=== PATIENT | male | born 1960 | race Caucasian/White ===

== ENCOUNTER 2017-07-07 23:57 | Inpatient (IN) | payer BC ==
--- NOTE | 2017-07-08 00:24 | EDM.PDOC ---
ED HPI GENERAL MEDICAL PROBLEM - General Chief Complaint: General Stated Complaint: ambulance Time Seen by Provider: 07/07/17 23:59 Source of Information: Reports: Patient, Family () History Limitations: Reports: Physical Impairment (Hard of hearing) - History of Present Illness INITIAL COMMENTS - FREE TEXT/NARRATIVE: The patient has a history of a kidney transplant over 18 years ago, and is on immunosuppressive medications. He states that his renal function is ordinarily normal. The patient states that he developed watery diarrhea and generalized weakness about 2 days ago. He developed some crampy abdominal discomfort this evening, and felt lightheaded, to the point that he could barely walk, around 22:00. He has had a cough productive of slight yellowish phlegm over the past 2 weeks, however, he has not had a fever. No nausea or emesis, although his appetite has been off. No recent chest pain or palpitations. No history of eating bad or spoiled food. No recent antibiotics. No recent travel. No similarly ill contacts. The patient took NyQuil tonight, and has taken 2 tablets of [id number] Advil twice a day for the past 3 days. The patient does not have a PCP. His Project Finance Analyst is Dr. Quintero. - Related Data Allergies Allergy/AdvReac Type Severity Reaction Status Date / Time No Known Allergies Allergy Verified 07/08/17 00:15 Home Meds: Home Meds Calcium Carbonate/Vitamin D3 [Calcium 600 + Vit D 200] 500 mg PO BEDTIME [History] Doxazosin Mesylate [Cardura] 8 mg PO DAILY 07/08/17 [History] Mycophenolate Mofetil [Cellcept] 250 mg PO BID 07/08/17 [History] Tacrolimus [Prograf] 1 mg PO BID 07/08/17 [History] Vit E/Zn/Lut/Lyco/Bilber/Hb261 [Lipotriad Vision Support Plus] 400 units PO BID 07/08/17 [History] prednisoLONE [Millipred] 5 mg PO BEDTIME 07/08/17 [History] Past Medical History HEENT History: Reports: Hard of Hearing Other HEENT History: wears FRANKLIN Genitourinary History: Reports: Other (See Below) (Congenital malformation of the urinary tract) Neurological History: Reports: Migraines - Past Surgical History GI Surgical History: Reports: Appendectomy Female Surgical History: Reports: Other (See Below) (Urostomy at 9 years old. 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 Constitutional: Reports: No Symptoms HEENT: Reports: No Symptoms Respiratory: Reports: No Symptoms Cardiovascular: Reports: No Symptoms Endocrine: Reports: No Symptoms GI/Abdominal: Reports: No Symptoms : Reports: No Symptoms Musculoskeletal: Reports: No Symptoms Skin: Reports: No Symptoms Neurological: Reports: No Symptoms Psychiatric: Reports: No Symptoms Hematologic/Lymphatic: Reports: No Symptoms Immunologic: Reports: No Symptoms ED EXAM, GENERAL - Physical Exam Exam: See Below Exam Limited By: No Limitations General Appearance: Alert, WD/WN, No Apparent Distress Eye Exam: Bilateral Eye: Normal Inspection Ears: Normal External Exam, Hearing Grossly Normal Nose: Normal Inspection, No Blood Throat/Mouth: Normal Inspection, Normal Lips, Normal Voice, No Airway Compromise Head: Atraumatic, Normocephalic Neck: Normal Inspection, Full Range of Motion Respiratory/Chest: No Respiratory Distress, Lungs Clear, Normal Breath Sounds, No Accessory Muscle Use Cardiovascular: Normal Peripheral Pulses, Regular Rate, Rhythm, No Edema, No Gallop, No JVD, No Murmur, No Rub Peripheral Pulses: 3+: Radial (L), Radial (R) GI/Abdominal: Normal Bowel Sounds, Soft, Non-Tender, No Organomegaly, No Distention, No Abnormal Bruit, No Mass, Other (Urostomy site in the right lower quadrant is clean, dry, intact) (Male) Exam: Deferred Rectal (Males) Exam: Deferred Back Exam: Normal Inspection, Full Range of Motion, NT Extremities: Normal Inspection, Normal Range of Motion, Non-Tender, No Pedal Edema, Normal Capillary Refill Neurological: Alert, Oriented, Normal Cognition, No Motor/Sensory Deficits Psychiatric: Normal Affect Skin Exam: Warm, Dry, Intact, Normal Color, No Rash Course - Vital Signs Last Recorded V/S: Last Vital Signs Temp 36.4 C 07/08/17 00:01 Pulse 90 07/08/17 00:01 Resp 18 07/08/17 00:01 BP 97/70 07/08/17 00:01 Pulse Ox 95 07/08/17 00:01 Orthostatic Blood Pressure [ 96/58 Standing] Orthostatic Blood Pressure [ 96/68 Sitting] Orthostatic Blood Pressure [ 104/67 Supine] - Orders/Labs/Meds Orders: Active Orders 24 hr Category Date Time Status Orthostatic Vital Signs [RC] STAT Care 07/08/17 00:25 Active Orthostatic Vital Signs [RC] STAT Care 07/08/17 00:41 Active Chest 2V [CR] Stat Exams 07/08/17 00:24 Taken CULTURE STOOL + SHIGATOX [RM] Stat Lab 07/08/17 00:26 Uncollected CULTURE URINE [RM] Stat Lab 07/08/17 02:23 Uncollected NOROVIRUS GROUP 1 & 2 RT-PCR Stat Lab 07/08/17 00:40 Received ROTAVIRUS DIRECT ANTIGEN STOOL [OP] Stat Lab 07/08/17 00:26 Uncollected WBC, STOOL [OP] Stat Lab 07/08/17 00:26 Uncollected Sodium Chloride 0.9% [Normal Saline] 1,000 ml Med 07/08/17 02:16 Ordered IV ONETIME Medication Orders Sodium Chloride (Normal Saline) 1,000 mls @ 999 mls/hr IV ONETIME ONE Stop: 07/08/17 03:16 Last Admin: 07/08/17 02:21 Dose: 999 mls/hr Labs: Laboratory Tests 07/08/17 07/08/17 07/08/17 Range/Units 00:40 00:40 00:40 WBC 9.11 H (4.23-9.07) K/mm3 RBC 5.13 (4.63-6.08) M/mm3 Hgb 16.2 (13.7-17.5) gm/L Hct 47.2 (40.1-51.0) % MCV 92.0 (79.0-92.2) fl MCH 31.6 (25.7-32.2) pg MCHC 34.3 (32.2-35.5) g/dl RDW Std Deviation 45.2 H (35.1-43.9) fL Plt Count 181 (163-337) K/mm3 MPV 9.8 (9.4-12.3) fl Neutrophils % (Manual) 83 H (40-60) % Band Neutrophils % 0 (0-10) % Lymphocytes % (Manual) 5 L (20-40) % Atypical Lymphs % 0 % Monocytes % (Manual) 11 H (2-10) % Eosinophils % (Manual) 0 L (0.8-7.0) % Basophils % (Manual) 1 (0.2-1.2) Platelet Estimate Adequate Plt Morphology Comment Normal RBC Morph Comment Normal Puncture Site ABG pH (7.35-7.45) ABG pCO2 (35.0-45.0) mmHg ABG pO2 (80.0-100.0) mmHg ABG HCO3 (22.0-26.0) meq/L ABG O2 Saturation (96.0-97.0) % ABG Base Excess (-2-2.0) Chilo Test A-a Gradient mmHg O2 Delivery Device Oxygen Flow Rate FiO2 (21.00-100.00) % Sodium 134 L (136-145) mEq/L Potassium 4.2 (3.5-5.1) mEq/L Chloride 100 (98-107) mEq/L Carbon Dioxide 18 L (21-32) mEq/L Anion Gap 20.2 H (5-15) BUN 47 H (7-18) mg/dL Creatinine 2.4 H (0.7-1.3) mg/dL Est Cr Clr Drug Dosing 34.86 mL/min Estimated GFR (MDRD) 28 (>60) mL/min BUN/Creatinine Ratio 19.6 H (14-18) Glucose 211 H (74-106) mg/dL Lactic Acid 1.1 (0.4-2.0) mmol/L Calcium 9.7 (8.5-10.1) mg/dL Magnesium 2.2 (1.8-2.4) mg/dl Total Bilirubin 0.3 (0.2-1.0) mg/dL AST 17 (15-37) U/L ALT 23 (16-63) U/L Alkaline Phosphatase 60 (46-116) U/L Total Protein 7.8 (6.4-8.2) g/dl Albumin 3.7 (3.4-5.0) g/dl Globulin 4.1 gm/dL Albumin/Globulin Ratio 0.9 L (1-2) Lipase 87 (73-393) U/L Urine Color (Yellow) Urine Appearance (Clear) Urine pH (5.0-8.0) Ur Specific [place] (1.005-1.030) Urine Protein (Negative) Urine Glucose (UA) (Negative) Urine Ketones (Negative) Urine Occult Blood (Negative) Urine Nitrite (Negative) Urine Bilirubin (Negative) Urine Urobilinogen (0.2-1.0) Ur Leukocyte Esterase (Negative) Urine RBC (0-5) /hpf Urine WBC (0-5) /hpf Ur Epithelial Cells (0-5) /hpf Urine Bacteria (FEW) /hpf Hyaline Casts (0-5) /lpf Urine Mucus (FEW) /hpf 07/08/17 07/08/17 Range/Units 00:40 01:15 WBC (4.23-9.07) K/mm3 RBC (4.63-6.08) M/mm3 Hgb (13.7-17.5) gm/L Hct (40.1-51.0) % MCV (79.0-92.2) fl MCH (25.7-32.2) pg MCHC (32.2-35.5) g/dl RDW Std Deviation (35.1-43.9) fL Plt Count (163-337) K/mm3 MPV (9.4-12.3) fl Neutrophils % (Manual) (40-60) % Band Neutrophils % (0-10) % Lymphocytes % (Manual) (20-40) % Atypical Lymphs % % Monocytes % (Manual) (2-10) % Eosinophils % (Manual) (0.8-7.0) % Basophils % (Manual) (0.2-1.2) Platelet Estimate Plt Morphology Comment RBC Morph Comment Puncture Site Lt radial ABG pH 7.32 L (7.35-7.45) ABG pCO2 32.2 L (35.0-45.0) mmHg ABG pO2 63.0 L (80.0-100.0) mmHg ABG HCO3 16.2 L (22.0-26.0) meq/L ABG O2 Saturation 93.1 L (96.0-97.0) % ABG Base Excess -8.4 L (-2-2.0) Chilo Test Positive A-a Gradient 31 mmHg O2 Delivery Device Room air Oxygen Flow Rate 0.0 FiO2 0.21 L (21.00-100.00) % Sodium (136-145) mEq/L Potassium (3.5-5.1) mEq/L Chloride (98-107) mEq/L Carbon Dioxide (21-32) mEq/L Anion Gap (5-15) BUN (7-18) mg/dL Creatinine (0.7-1.3) mg/dL Est Cr Clr Drug Dosing mL/min Estimated GFR (MDRD) (>60) mL/min BUN/Creatinine Ratio (14-18) Glucose (74-106) mg/dL Lactic Acid (0.4-2.0) mmol/L Calcium (8.5-10.1) mg/dL Magnesium (1.8-2.4) mg/dl Total Bilirubin (0.2-1.0) mg/dL AST (15-37) U/L ALT (16-63) U/L Alkaline Phosphatase (46-116) U/L Total Protein (6.4-8.2) g/dl Albumin (3.4-5.0) g/dl Globulin gm/dL Albumin/Globulin Ratio (1-2) Lipase (73-393) U/L Urine Color Veronica H (Yellow) Urine Appearance Turbid H (Clear) Urine pH 6.5 (5.0-8.0) Ur Specific [place] 1.025 (1.005-1.030) Urine Protein 2+ H (Negative) Urine Glucose (UA) Negative (Negative) Urine Ketones Negative (Negative) Urine Occult Blood 2+ H (Negative) Urine Nitrite Negative (Negative) Urine Bilirubin 1+ H (Negative) Urine Urobilinogen 0.2 (0.2-1.0) Ur Leukocyte Esterase 3+ H (Negative) Urine RBC Not seen (0-5) /hpf Urine WBC Too numerous to cnt H (0-5) /hpf Ur Epithelial Cells 0-5 (0-5) /hpf Urine Bacteria Many H (FEW) /hpf Hyaline Casts 0-5 (0-5) /lpf Urine Mucus Not seen (FEW) /hpf Meds: Medications Generic Name Dose Route Start Last Admin Trade Name Freq PRN Reason Stop Dose Admin Sodium Chloride 1,000 mls @ 999 mls/hr 07/08/17 02:16 07/08/17 02:21 Normal Saline IV 07/08/17 03:16 999 mls/hr ONETIME ONE Administration Discontinued Medications Generic Name Dose Route Start Last Admin Trade Name Alicia PRN Reason Stop Dose Admin Sodium Chloride 1,000 mls @ 999 mls/hr 07/08/17 00:26 07/08/17 00:34 Normal Saline IV 07/08/17 01:26 999 mls/hr ONETIME ONE Administration Loperamide HCl 4 mg 07/08/17 00:26 07/08/17 00:33 Imodium PO 07/08/17 00:27 4 mg ONETIME STA Administration Trimethoprim/Sulfamethoxazole 1 tab 07/08/17 02:24 Septra Ds PO 07/08/17 02:25 ONETIME ONE - Re-Assessments/Exams Free Text/Narrative Re-Assessment/Exam: 07/08/17 00:40 The patient is orthostatic. 1 L normal saline bolus has already been ordered. 07/08/17 00:58 The patient's ABG demonstrates metabolic acidosis with incomplete respiratory compensation. 07/08/17 01:03 Two-view chest radiograph appears to be grossly normal. Cardiac silhouette is within normal limits. No pulmonary vascular congestion. No pleural effusions. No focal infiltrate. No pneumothorax. Formal read per the Radiologist pending. 07/08/17 02:14 Following 1 L normal saline IV fluid, the patient is no longer orthostatic, however, his chemistry panel indicates significant renal insufficiency, with a BUN/Cr of 47/2.4, a bicarbonate of 18, and an anion gap of 20.2. There are no prior labs to compare, however, the patient tells me that his renal function is ordinarily normal. Based on his history, the patient is most likely suffering from intravascular depletion secondary to diarrhea, leading to his orthostasis, metabolic acidosis, and renal failure. He will require additional IV fluid. Additionally, the patient's urinalysis is consistent with a UTI. The urinalysis is obtained from a urostomy, which will create an abnormal-appearing urinalysis , however, I don't believe the urinalysis would ordinarily be as abnormal as this, with 3+ leukocyte esterase, too numerous to count WBCs, and many bacteria. I have ordered a urine culture, and will start the patient on oral Bactrim. Stool studies were ordered, however, the patient has not provided a stool sample. 07/08/17 02:[address] Bailey at 02:21. He accepts the patient for admission to the hospital and asks that I write some bridge orders. Departure - Departure Time of Disposition: 02:26 Disposition: Admitted As Inpatient 66 Condition: Fair Clinical Impression: High anion gap metabolic acidosis, Acute renal failure, Diarrhea, UTI (urinary tract infection), Orthostatic hypotension - Discharge Information - My Orders Last 24 Hours: My Active Orders 07/08/17 00:24 Chest 2V [CR] Stat 07/08/17 00:25 Orthostatic Vital Signs [RC] STAT 07/08/17 00:26 CULTURE STOOL + SHIGATOX [RM] Stat ROTAVIRUS DIRECT ANTIGEN STOOL [OP] Stat WBC, STOOL [OP] Stat 07/08/17 00:40 NOROVIRUS GROUP 1 & 2 RT-PCR Stat 07/08/17 00:41 Orthostatic Vital Signs [RC] STAT 07/08/17 02:16 Sodium Chloride 0.9% [Normal Saline] 1,000 ml IV ONETIME 07/08/17 02:23 CULTURE URINE [RM] Stat - Assessment/Plan Last 24 Hours: My Active Orders 07/08/17 00:24 Chest 2V [CR] Stat 07/08/17 00:25 Orthostatic Vital Signs [RC] STAT 07/08/17 00:26 CULTURE STOOL + SHIGATOX [RM] Stat ROTAVIRUS DIRECT ANTIGEN STOOL [OP] Stat WBC, STOOL [OP] Stat 07/08/17 00:40 NOROVIRUS GROUP 1 & 2 RT-PCR Stat 07/08/17 00:41 Orthostatic Vital Signs [RC] STAT 07/08/17 02:16 Sodium Chloride 0.9% [Normal Saline] 1,000 ml IV ONETIME 07/08/17 02:23 CULTURE URINE [RM] Stat
[2017-07-08] MEDS ORDERED: Loperamide 2 MG Cap PO STA (00:26)
[2017-07-08] MEDS ORDERED: Sodium Chloride 0.9% 1,000 ML IV ONE ×2 (00:26→02:16)
[2017-07-08] MEDS ORDERED: Sulfamethoxazole/Trimethoprim 800-160 MG Tab PO ONE (02:24)
[2017-07-08] MEDS ORDERED: FLU Vacc QS 2017-18 (6mos UP)/PF 60 MCG/0.5 ML Syringe IM ONE (03:45)
[2017-07-08] MEDS: Sodium Chloride 0.9% 1,000 ML IV SCH ×2 (04:08→10:55)
--- NOTE | 2017-07-08 08:06 | PCM.HP ---
H&P History of Present Illness - General Date of Service: 07/08/17 Admit Problem/Dx: Admission Diagnosis/Problem Admission Diagnosis/Problem Metabolic acidosis with increased anion gap and accumulation of organic acids Sj was admitted in records specialist hours to [facility] for acute diarrheal illness, CLARICE (s/p renal transplant 18 years ago), AUTI, dehydration with metabolic acidosis. He was started on IVF for hydration, stool studies ordered for collection. He has felt ill with watery diarrhea x 2.5 days. He is unsure what may have set him off. Denies antibiotic use for last 6+ months, no recent travel or questionable food, no sick contacts at home or work that he is aware of. He takes Prograf and Cellcept for renal transplant. Prograf dose was recently incresed after a lower dose for a few months d/t elevated levels. Dr. 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 Source of Information: Patient History Limitations: Reports: No Limitations - History of Present Illness Initial Comments - Free Text/Narative: Jace is a pleasant 57yo male, reports he feels significantly better than yesterday. No abdominal pain or nausea at this time. He had one loose diarrhea stool overnight but none since that time. He is afebrile. IVF overnight without problems. VSS, b/p slightly low but is asymptomatic. No c/o pain/discomfort. Onset of Symptoms: Reports: Sudden Location: Reports: Abdomen, Back - Related Data Allergies/Adverse Reactions: Allergies Allergy/AdvReac Type Severity Reaction Status Date / Time No Known Allergies Allergy Verified 07/08/17 00:15 Home Medications: Home Meds Calcium Carbonate/Vitamin D3 [Calcium 600 + Vit D 200] 500 mg PO BEDTIME [History] Doxazosin Mesylate [Cardura] 8 mg PO DAILY 07/08/17 [History] Mycophenolate Mofetil [Cellcept] 500 mg PO BID 07/08/17 [History] Sulfamethoxazole/Trimethoprim [Bactrim 400-80 MG] 1 tab PO ASDIRECTED 07/08/17 [ History] Tacrolimus [Prograf] 1 mg PO BID 07/08/17 [History] Vit E/Zn/Lut/Lyco/Bilber/Hb261 [Lipotriad Vision Support Plus] 400 units PO BID 07/08/17 [History] amLODIPine Besylate/Benazepril [Amlodipine-Benazepril 10-20 MG] 1 cap PO DAILY 07/08/17 [History] predniSONE [Prednisone] 5 mg PO DAILY 07/08/17 [History] Past Medical History HEENT History: Reports: Hard of Hearing Other HEENT History: wears FRANKLIN Cardiovascular History: Reports: Hypertension Gastrointestinal History: Reports: None Genitourinary History: Reports: Urostomy Other Genitourinary History: had only 1 transplanted kidney for 19 years ago. Neurological History: Reports: Migraines Endocrine/Metabolic History: Reports: Other (See Below) Other Endocrine/Metabolic History: Kidney transplant 18 years ago-only 1 kidney present - Past Surgical History HEENT Surgical History: Reports: None Cardiovascular Surgical History: Reports: None GI Surgical History: Reports: Appendectomy Other GI Surgeries/Procedures: unsure if appendix taken out during transplant Male Surgical History: Reports: None Endocrine Surgical History: Reports: None Neurological Surgical History: Reports: None Dermatological Surgical History: Reports: None Social & Family History - Family History Family Medical History: Noncontributory - Tobacco Use Smoking Status *Q: Current Every Day Smoker Years of Tobacco use: 15 Packs/Tins Daily: 0.5 Used Tobacco, but Quit: No Second Hand Smoke Exposure: Yes - Caffeine Use Caffeine Use: Reports: Coffee - Alcohol Use Days Per Week of Alcohol Use: 1 Number of Drinks Per Day: 3 Total Drinks Per Week: 3 Date of Last Drink: 07/03/17 Time of Last Drink: 19:00 - Recreational Drug Use Recreational Drug Use: No - Living Situation & Occupation Living situation: Reports: , with Spouse 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 Denies: Fever, Chills, Malaise HEENT: Reports: No Symptoms Pulmonary: Reports: No Symptoms. Denies: Shortness of Breath Cardiovascular: Reports: No Symptoms. Denies: Chest Pain, Palpitations, Dyspnea on Exertion Gastrointestinal: Reports: No Symptoms, Diarrhea (loose liquid stool x 1). Denies: Abdominal Pain, Constipation Musculoskeletal: Reports: No Symptoms Psychiatric: Reports: No Symptoms Neurological: Reports: No Symptoms Exam - Exam Exam: See Below - Vital Signs Vital Signs: Last Vital Signs Temp 98.1 F 07/08/17 03:15 Pulse 83 07/08/17 03:15 Resp 18 07/08/17 03:15 BP 109/74 07/08/17 03:15 Pulse Ox 92 L 07/08/17 03:15 Weight: 153 lb 9.6 oz - Exam Quality Assessment: DVT Prophylaxis General: Alert, Oriented, Cooperative HEENT: EOMI, Hearing Intact (mild NUNAKAUYARMIUT), Mucosa Moist & Joy, Pupils Equal, PERRLA Neck: Supple Lungs: Normal Respiratory Effort Cardiovascular: Regular Rate, Normal S1, Normal S2 GI/Abdominal Exam: Normal Bowel Sounds, Soft, Tender (minimal diffuse abd discomfort with palpation). No: Guarding, Rigid, Rebound (Male) Exam: Deferred Rectal (Males) Exam: Deferred Back Exam: Normal Inspection Extremities: Normal Inspection, No Pedal Edema, Normal Capillary Refill Peripheral Pulses: 2+: Radial (L), Radial (R), Dorsalis Pedis (L), Dorsalis Pedis (R) Skin: Warm, Dry, Intact Neuro Extensive - Mental Status: Alert, Oriented x3, Normal Mood/Affect, Normal Cognition, Memory Intact Neuro Extensive - Motor, Sensory, Reflexes: CN II-XII Intact Psychiatric: Alert, Normal Affect, Normal Mood - Patient Data Lab Results Last 24 hrs: Laboratory Results - last 24 hr 07/08/17 Range/Units 05:30 Sodium 136 (136-145) mEq/L Potassium 4.5 (3.5-5.1) mEq/L Chloride 106 (98-107) mEq/L Carbon Dioxide 16 L (21-32) mEq/L Anion Gap 18.5 H (5-15) BUN 28 H (7-18) mg/dL Creatinine 1.4 H (0.7-1.3) mg/dL Est Cr Clr Drug Dosing 57.37 mL/min Estimated GFR (MDRD) 52 (>60) mL/min BUN/Creatinine Ratio 20.0 H (14-18) Glucose 136 H (74-106) mg/dL Calcium 7.7 L (8.5-10.1) mg/dL Result Diagrams: 07/08/17 00:40 07/08/17 05:30 *Q Meaningful Use (ADM) - VTE *Q VTE Criteria *Q: - Stroke *Q Stroke Criteria *Q: - AMI *Q AMI Criteria *Q: - Problem List (1) Diarrhea SNOMED Code(s): 74209637 ICD Code: R19.7 - DIARRHEA, UNSPECIFIED Status: Acute Priority: High Current Visit: Yes Qualifiers: Diarrhea type: unspecified type Qualified Code(s): R19.7 - Diarrhea, unspecified (2) Acute renal failure SNOMED Code(s): 03627500 ICD Code: N17.9 - ACUTE KIDNEY FAILURE, UNSPECIFIED Status: Acute Priority: High Current Visit: Yes Qualifiers: Acute renal failure type: unspecified Qualified Code(s): N17.9 - Acute kidney failure, unspecified (3) Dehydration SNOMED Code(s): 78808742 ICD Code: E86.0 - DEHYDRATION Status: Acute Priority: High Current Visit: Yes (4) High anion gap metabolic acidosis SNOMED Code(s): 17441494 ICD Code: E87.2 - ACIDOSIS Status: Acute Priority: High Current Visit: Yes (5) UTI (urinary tract infection) SNOMED Code(s): 03988920 ICD Code: N39.0 - URINARY TRACT INFECTION, SITE NOT SPECIFIED Status: Acute Priority: High Current Visit: Yes (6) Orthostatic hypotension SNOMED Code(s): 37309789 ICD Code: I95.1 - ORTHOSTATIC HYPOTENSION Status: Resolved Priority: High Current Visit: Yes Problem List Initiated/Reviewed/Updated: Yes Orders Last 24hrs: Active Orders 24 hr Category Date Time Status Admission Status [Patient Status] [ADT] Routine ADT 07/08/17 03:09 Active Bedrest Bathroom Privileges [RC] ASDIRECTED Care 07/08/17 04:15 Active Regular Diet [DIET] Diet 07/08/17 Breakfast Active C DIFFICILE BY PCR W/NAP1 [MOLEC] Routine Lab 07/08/17 07:11 Received Calcium Carbonate/Vitamin D3 [Calcium Carbonate/Vitamin Med 07/08/17 21:00 Ordered D 1500 MG-200 Unit] 500 mg PO BEDTIME Doxazosin Mesylate [Cardura] Med 07/08/17 09:00 Ordered 8 mg PO DAILY Mycophenolate Mofetil [Cellcept] Med 07/08/17 09:00 Ordered 500 mg PO BID Sodium Chloride 0.9% [Normal Saline] 1,000 ml Med 07/08/17 04:00 Active IV ASDIRECTED Sulfamethoxazole/Trimethoprim Med 07/08/17 08:00 Ordered 1 tab PO ASDIRECTED Sulfamethoxazole/Trimethoprim [Septra DS] Med 07/08/17 09:00 Active 1 tab PO BID Tacrolimus [Prograf] Med 07/08/17 09:00 Ordered 1 mg PO BID amLODIPine Besylate/Benazepril [Amlodipine-Benazepril Med 07/08/17 09:00 Ordered 10-20 MG] 1 cap PO DAILY predniSONE Med 07/08/17 09:00 Ordered 5 mg PO DAILY Resuscitation Status Routine Resus Stat 07/08/17 04:14 Ordered Medication Orders Calcium Carbonate (Calcium Carbonate/Vitamin D 1500 Mg-200 Unit) tab PO BEDTIME ANYA Sodium Chloride (Normal Saline) 1,000 mls @ 150 mls/hr IV ASDIRECTED ANYA Last Admin: 07/08/17 04:08 Dose: 150 mls/hr Mycophenolate Mofetil (Cellcept) 500 mg PO BID ANYA Non-Formulary Medication (Amlodipine Besylate/Benazepril [Amlodipine-Benazepril 10-20 Mg]) 1 cap PO DAILY ANYA Non-Formulary Medication (Doxazosin Mesylate [Cardura]) 8 mg PO DAILY ANYA Non-Formulary Medication (Sulfamethoxazole/Trimethoprim) 1 tab PO ASDIRECTED ANYA Prednisone (Prednisone) 5 mg PO DAILY ANYA Tacrolimus (Prograf) 1 mg PO BID ANYA Trimethoprim/Sulfamethoxazole (Septra Ds) 1 tab PO BID ANYA Assessment/Plan Comment:: I/P: Acute diarrheal illness -suspect viral illness -stool studies ordered and pending -Hydrate -If stool studies negative then can start immodium Dehydration with metabolic acidosis -IVF as above -Culture pending -Bactrim DS PO BID pending culture Acute kidney injury due to volume depletion--improving -Creat 2.4-->1.4 -Hydration -Treat UTI -Monitor renal function -Resume meds for renal transplant S/P renal transplant, 18 years ago -Resume cellcept and prograf -Cont to monitor renal function--improving Chronic: HTN- cont home meds, PRN apresoline NUNAKAUYARMIUT Other: GI/DVT prophylax Cont home meds Daily labs Ambulate QID Patient is Full Code status
--- NOTE | 2017-07-08 08:14 | CR ---
Chest: 2 views of the chest are obtained. Comparison: No prior chest x-ray. Heart size at the upper limits of normal. Upper mediastinum is within normal limits. Lungs are hyperinflated. No acute parenchymal densities are seen. Slight anterior wedging is noted within the mid thoracic spine which is likely old. Impression: 1. Probable emphysematous change. 2. Other incidental findings. Nothing acute is suspected. Diagnostic code #2
[2017-07-08] MEDS ORDERED: Sulfamethoxazole/Trimethoprim 800-160 MG Tab PO SCH (09:00)
[2017-07-08] MEDS: Mycophenolate Mofetil 250 MG Cap PO SCH ×2 (09:50→20:47)
[2017-07-08] MEDS: predniSONE 5 MG Tab PO SCH (09:51)
[2017-07-08] MEDS: TACROLIMUS 1 MG PO SCH ×2 (09:53→20:48)
[2017-07-08] MEDS: Doxazosin 4 MG Tab PO SCH (10:01)
[2017-07-08] MEDS: amLODIPine 10 MG Tab PO SCH (10:02)
[2017-07-08] MEDS: cefTRIAXone 1 GM in Dextrose 5% in Water 100 ML IV SCH ×2 (14:29)
[2017-07-08] MEDS: Calcium Carbonate/Vitamin D3 600 MG-200 Units Tab PO SCH (20:47)
[2017-07-09] MEDS: Sodium Chloride 0.9% 1,000 ML IV SCH ×3 (01:41→16:16)
--- NOTE | 2017-07-09 08:26 | PCM.PN ---
- General Info Date of Service: 07/09/17 Admission Dx/Problem (Free Text): Admission Diagnosis/Problem Admission Diagnosis/Problem Metabolic acidosis with increased anion gap and accumulation of organic acids Subjective Update: Follow Up Functional Status: Reports: Pain Controlled, Tolerating Diet, Ambulating, Urinating. Denies: New Symptoms - Review of Systems General: Denies: Fever, Weakness, Fatigue, Malaise, Chills HEENT: Reports: No Symptoms Pulmonary: Denies: Shortness of Breath Cardiovascular: Denies: Chest Pain Gastrointestinal: Denies: Abdominal Pain, Nausea, Vomiting Genitourinary: Reports: No Symptoms Musculoskeletal: Reports: No Symptoms Skin: Denies: Cyanosis, Mottled, Pallor, Diaphoresis, Rash Neurological: Denies: Confusion, Weakness Psychiatric: Denies: Depression, Anxiety, Agitation, Hallucinations Systems Review Comment:: No overnight or acute issues. He is doing better. Vitals are stable. He reports no new complaints. - Patient Data Vitals - Most Recent: Last Vital Signs Temp 36.9 C 07/08/17 20:46 Pulse 70 07/09/17 01:44 Resp 18 07/09/17 01:44 BP 105/63 07/09/17 01:44 Pulse Ox 94 L 07/09/17 01:44 Weight - Most Recent: 70.125 kg I&O - Last 24 Hours: Intake & Output 07/08/17 07/09/17 07/09/17 22:59 06:59 14:59 Intake Total 2920 2676 Output Total 1200 500 Balance 1720 2176 Lab Results Last 24 Hours: Laboratory Results - last 24 hr 07/08/17 Range/Units 07:11 C.difficile [id number] Presumptive negative C. difficile Tox (PCR) Negative David Results Last 24 Hours: Microbiology 07/08/17 07:11 Rotavirus Antigen - Final Stool / Feces NEGATIVE ROTAVIRUS ANTIGEN 07/08/17 07:11 Stool for WBCs - Final Stool / Feces NO WBC SEEN Med Orders - Current: Current Medications Amlodipine Besylate (Norvasc) 10 mg PO DAILY [facility] Last Admin: 07/08/17 10:02 Dose: Not Given Benazepril HCl (Lotensin) 20 mg PO DAILY [facility] Last Admin: 07/08/17 10:02 Dose: Not Given Calcium Carbonate (Calcium Carbonate/Vitamin D 1500 Mg-200 Unit) 1 tab PO BEDTIME [facility] Last Admin: 07/08/17 20:47 Dose: 1 tab Doxazosin Mesylate (Cardura) 8 mg PO DAILY [facility] Last Admin: 07/08/17 10:01 Dose: Not Given Sodium Chloride (Normal Saline) 1,000 mls @ 150 mls/hr IV ASDIRECTED [facility] Last Admin: 07/09/17 01:41 Dose: 150 mls/hr Ceftriaxone Sodium 1 gm/ (Dextrose/Water) 100 mls @ 200 mls/hr IV Q24H [facility] Last Admin: 07/08/17 14:29 Dose: 200 mls/hr Mycophenolate Mofetil (Cellcept) 500 mg PO BID [facility] Last Admin: 07/08/17 20:47 Dose: 500 mg Tacrolimus 1 Mg Cap. 0 each PO BID [facility] Last Admin: 07/08/17 20:48 Dose: 2 each Prednisone (Prednisone) 5 mg PO DAILY [facility] Last Admin: 07/08/17 09:51 Dose: 5 mg Discontinued Medications Sodium Chloride (Normal Saline) 1,000 mls @ 999 mls/hr IV ONETIME ONE Stop: 07/08/17 01:26 Last Admin: 07/08/17 00:34 Dose: 999 mls/hr Sodium Chloride (Normal Saline) 1,000 mls @ 999 mls/hr IV ONETIME ONE Stop: 07/08/17 03:16 Last Admin: 07/08/17 02:21 Dose: 999 mls/hr Influenza Virus Vaccine (Pharmacy To Dose - Influenza Vaccine) 1 each IM ONETIME ONE Stop: 07/08/17 03:37 Influenza Virus Vaccine (Flulaval Quad [id number]) 60 mcg IM .ONCE ONE Stop: 07/08/17 03:46 Loperamide HCl (Imodium) 4 mg PO ONETIME STA Stop: 07/08/17 00:27 Last Admin: 07/08/17 00:33 Dose: 4 mg Trimethoprim/Sulfamethoxazole (Septra Ds) 1 tab PO ONETIME ONE Stop: 07/08/17 02:25 Last Admin: 07/08/17 02:33 Dose: 1 tab Trimethoprim/Sulfamethoxazole (Septra Ds) 1 tab PO BID [facility] Last Admin: 07/08/17 09:51 Dose: 1 tab Trimethoprim/Sulfamethoxazole (Septra Ds) 0.5 tab PO MoWeFr [facility] - Exam General: Alert, Oriented, Cooperative, No Acute Distress HEENT: Pupils Equal, Pupils Reactive, EOMI, Mucous Membr. Moist/[place] Neck: Supple, Trachea Midline, No JVD Lungs: Clear to Auscultation, Normal Respiratory Effort Cardiovascular: Regular Rate, Regular Rhythm GI/Abdominal Exam: Normal Bowel Sounds, Soft, Non-Tender, No Organomegaly, No Distention, No Abnormal Bruit (Male) Exam: Deferred, Other (Urostomy on right lower abdomen) Back Exam: Normal Inspection, Decreased Range of Motion Extremities: Normal Inspection, Normal Range of Motion, Non-Tender, No Pedal Edema, Normal Capillary Refill Peripheral Pulses: 2+: Dorsalis Pedis (L), Dorsalis Pedis (R) Skin: Warm, Dry, Intact Neurological: No New Focal Deficit Psy/Mental Status: Alert, Normal Affect, Normal Mood - Problem List Review Problem List Initiated/Reviewed/Updated: Yes - My Orders Last 24 Hours: My Active Orders 07/09/17 08:24 BMP [BASIC METABOLIC PANEL,BMP] [CHEM] Stat CBC WITH AUTO DIFF [HEME] Stat MG [MAGNESIUM] [CHEM] Stat - Plan Plan:: I/P: Acute: Gasteroentetitis, Improved -Likely viral illness -Stool studies-inadequate sample -Rotavirus negative -Stool WBC is negative -Continue with hydration -If stool studies negative then can start immodium UTI -Positive for Pseudomonas Aeruginosa -Pending sensitivity -Continue current Abx Resolved: S/p Dehydration with metabolic acidosis -2/2 Volume Depletion -Will d/c IVF -Bactrim DS PO BID pending culture S/p Acute kidney injury -2/2 volume depletion -Creat 2.4-->1.4--> now 1.0 -Monitor renal function -Resume meds for renal transplant Chronic: HTN- cont home meds, PRN apresoline [place] S/P renal transplant, 18 years ago -Resume cellcept and prograf Other Plans: He is clinically stable Continue current treatment GI/DVT prophylax Cont home meds Daily labs Ambulate QID Patient is Full Code status Possible d/c in AM
[2017-07-09] MEDS: Doxazosin 4 MG Tab PO SCH (08:30)
[2017-07-09] MEDS: predniSONE 5 MG Tab PO SCH (08:30)
[2017-07-09] MEDS: TACROLIMUS 1 MG PO SCH ×2 (08:31→22:06)
[2017-07-09] MEDS: amLODIPine 10 MG Tab PO SCH (08:31)
[2017-07-09] MEDS ORDERED: Sulfamethoxazole/Trimethoprim 800-160 MG Tab PO SCH ×2 (09:00→09:50)
[2017-07-09] MEDS: Mycophenolate Mofetil 250 MG Cap PO SCH ×2 (09:45→22:04)
[2017-07-09] MEDS: Magnesium Sulfate/Water 2 GM in Premix Bag 1 BAG IV SCH ×2 (12:01→15:13)
[2017-07-09] MEDS: cefTRIAXone 1 GM in Dextrose 5% in Water 100 ML IV SCH ×2 (14:00)
[2017-07-09] MEDS: Calcium Carbonate/Vitamin D3 600 MG-200 Units Tab PO SCH (22:02)
[2017-07-10] MEDS: Mycophenolate Mofetil 250 MG Cap PO SCH (09:20)
[2017-07-10] MEDS: Doxazosin 4 MG Tab PO SCH (09:21)
[2017-07-10] MEDS: predniSONE 5 MG Tab PO SCH (09:21)
[2017-07-10] MEDS: amLODIPine 10 MG Tab PO SCH (09:21)
[2017-07-10] MEDS: TACROLIMUS 1 MG PO SCH (09:23)
--- NOTE | 2017-07-10 10:07 | PCM.DCSUM1 ---
Discharge Summary - Hospital Course Brief History: Sj was admitted in virtualization consultant hours to [facility] for acute diarrheal illness, CLARICE (s/p renal transplant 18 years ago), AUTI, dehydration with metabolic acidosis. He was started on IVF for hydration, stool studies ordered for collection. He has felt ill with watery diarrhea x 2.5 days. He is unsure what may have set him off. Denies antibiotic use for last 6+ months, no recent travel or questionable food, no sick contacts at home or work that he is aware of. He takes Prograf and Cellcept for renal transplant. Prograf dose was recently incresed after a lower dose for a few months d/t elevated levels. 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 - Discharge Data Discharge Date: 07/10/17 Discharge Disposition: Home, Self-Care 01 Condition: Good - Discharge Diagnosis/Problem(s) (1) UTI (urinary tract infection) SNOMED Code(s): 84793333 ICD Code: N39.0 - URINARY TRACT INFECTION, SITE NOT SPECIFIED Status: Acute Priority: High Qualifiers: Urinary tract infection type: acute cystitis Hematuria presence: without hematuria Qualified Code(s): N30.00 - Acute cystitis without hematuria (2) Acute renal failure SNOMED Code(s): 36846592 ICD Code: N17.9 - ACUTE KIDNEY FAILURE, UNSPECIFIED Status: Resolved Priority: High Qualifiers: Acute renal failure type: unspecified Qualified Code(s): N17.9 - Acute kidney failure, unspecified (3) Dehydration SNOMED Code(s): 77178687 ICD Code: E86.0 - DEHYDRATION Status: Resolved Priority: High (4) Diarrhea SNOMED Code(s): 88757386 ICD Code: R19.7 - DIARRHEA, UNSPECIFIED Status: Resolved Priority: High Qualifiers: Diarrhea type: unspecified type Qualified Code(s): R19.7 - Diarrhea, unspecified (5) High anion gap metabolic acidosis SNOMED Code(s): 53917833 ICD Code: E87.2 - ACIDOSIS Status: Resolved Priority: High (6) Orthostatic hypotension SNOMED Code(s): 50612316 ICD Code: I95.1 - ORTHOSTATIC HYPOTENSION Status: Resolved Priority: High - Patient Summary/Data Operative Procedure(s) Performed: None Complications: None Consults: None Labs Pending at D/C: None Recommended Follow-up Testing/Procedures: None Planned Operative Procedure(s) after DC: None Hospital Course: Patient was primarily admitted for acute diarrhea which led to acute kidney injury from intravascular volume depletion. Patient was provided supportive care. His GI workup revealed no obvious etiology except for possible gastroenteritis. However the patient slowly improved with intravenous hydration and resumption of oral intake. His admission was partially complicated by a mild urinary tract infection and he received empiric intravenous antibiotic. Once his culture came back positive for pseudomonas, he was switched to oral Cipro to complete an additional course of outpatient treatment. Patient had done well since admission. His renal function was back to normal. He was discharged clinically stable and was released with a short course of antibiotic along with probiotic to take. He was advised to hold off on his prophylactic Bactrim until completion of his urinary urinary tract infection treatment. Patient was further advised to follow -up with his primary care after discharge. The patient expressed understanding and in agreement with the plans as discussed above. All questions were answered. - Patient Instructions Diet: Usual Diet as Tolerated Activity: As Tolerated Driving: May Drive Today Showering/Bathing: May Shower Notify Provider of: Fever, Increased Pain, Nausea and/or Vomiting Other/Special Instructions: - Please take new medications as directed. - Continue all home medications except Bactrim. - Resume Bactrim once done with Cipro. - Resume routine home activities. - Call or follow up with your doctor for any questions or concerns after discharge - Discharge Plan Prescriptions/Med Rec: Ciprofloxacin HCl 250 mg PO BID #7 tablet Lactobac Cmb #3/Fos/Pantethine [Probiotic & Acidophilus] 1 each PO DAILY #5 capsule Home Medications: Home Meds Calcium Carbonate/Vitamin D3 [Calcium 600 + Vit D 200] 500 mg PO BEDTIME [History] Doxazosin Mesylate [Cardura] 8 mg PO DAILY 07/08/17 [History] Mycophenolate Mofetil [Cellcept] 500 mg PO BID 07/08/17 [History] Sulfamethoxazole/Trimethoprim [Bactrim 400-80 MG] 1 tab PO ASDIRECTED 07/08/17 [ History] Tacrolimus [Prograf] 1 mg PO BID 07/08/17 [History] Vit E/Zn/Lut/Lyco/Bilber/Hb261 [Lipotriad Vision Support Plus] 400 units PO BID 07/08/17 [History] amLODIPine Besylate/Benazepril [Amlodipine-Benazepril 10-20 MG] 1 cap PO DAILY 07/08/17 [History] predniSONE [Prednisone] 5 mg PO DAILY 07/08/17 [History] Ciprofloxacin HCl 250 mg PO BID #7 tablet 07/10/17 [Rx] Lactobac Cmb #3/Fos/Pantethine [Probiotic & Acidophilus] 1 each PO DAILY #5 capsule 07/10/17 [Rx] Patient Handouts: Acute Kidney Injury, Urinary Tract Infection, Adult, Easy-to- Read - Discharge Summary/Plan Comment DC Time >30 min.: Yes (45 mins) Discharge Summary/Plan Comment: Discharge to Home - General Info Date of Service: 07/10/17 Admission Dx/Problem (Free Text: Admission Diagnosis/Problem Admission Diagnosis/Problem Metabolic acidosis with increased anion gap and accumulation of organic acids Subjective Update: Follow Up Functional Status: Reports: Pain Controlled, Tolerating Diet, Ambulating, Urinating. Denies: New Symptoms - Review of Systems General: Denies: Fever, Weakness, Fatigue, Malaise, Chills HEENT: Reports: No Symptoms Pulmonary: Denies: Shortness of Breath Cardiovascular: Denies: Chest Pain Gastrointestinal: Denies: Abdominal Pain, Nausea, Vomiting Genitourinary: Reports: No Symptoms Musculoskeletal: Reports: No Symptoms Skin: Denies: Cyanosis, Mottled, Pallor, Diaphoresis, Rash Neurological: Denies: Confusion, Difficulty Walking, Weakness, Gait Disturbance Psychiatric: Denies: Depression, Anxiety, Agitation, Hallucinations Systems Review Comment: No overnight or acute issues. He is doing relatively well. He report no new complaints. - Patient Data Vitals - Most Recent: Last Vital Signs Temp 37.1 C 07/10/17 04:38 Pulse 73 07/10/17 04:38 Resp 16 07/10/17 04:38 BP 103/70 07/10/17 09:22 Pulse Ox 93 L 07/10/17 04:38 Weight - Most Recent: 68.402 kg I&O - Last 24 hours: Intake & Output 07/09/17 07/10/17 07/10/17 22:59 06:59 14:59 Intake Total 2700 500 Balance 2700 500 Lab Results - Last 24 hrs: Laboratory Results - last 24 hr 07/10/17 07/10/17 Range/Units 08:36 08:36 WBC 6.59 (4.23-9.07) K/mm3 RBC 5.00 (4.63-6.08) M/mm3 Hgb 15.3 (13.7-17.5) gm/L Hct 45.4 (40.1-51.0) % MCV 90.8 (79.0-92.2) fl MCH 30.6 (25.7-32.2) pg MCHC 33.7 (32.2-35.5) g/dl RDW Std Deviation 44.3 H (35.1-43.9) fL Plt Count 188 (163-337) K/mm3 MPV 9.3 L (9.4-12.3) fl Neut % (Auto) 53.0 (34.0-67.9) % Lymph % (Auto) 35.1 (21.8-53.1) % [place] % (Auto) 11.4 (5.3-12.2) % Eos % (Auto) 0.3 L (0.8-7.0) Baso % (Auto) 0.2 (0.1-1.2) % Neut # (Auto) 3.50 (1.78-5.38) K/mm3 Lymph # (Auto) 2.31 (1.32-3.57) K/mm3 [place] # (Auto) 0.75 (0.30-0.82) K/mm3 Eos # (Auto) 0.02 L (0.04-0.54) K/mm3 Baso # (Auto) 0.01 (0.01-0.08) K/mm3 Sodium 139 (136-145) mEq/L Potassium 3.7 (3.5-5.1) mEq/L Chloride 106 (98-107) mEq/L Carbon Dioxide 18 L (21-32) mEq/L Anion Gap 18.7 H (5-15) BUN 10 (7-18) mg/dL Creatinine 1.0 (0.7-1.3) mg/dL Est Cr Clr Drug Dosing 78.85 mL/min Estimated GFR (MDRD) > 60 (>60) mL/min BUN/Creatinine Ratio 10.0 L (14-18) Glucose 112 H (74-106) mg/dL Calcium 8.2 L (8.5-10.1) mg/dL Magnesium 1.7 L (1.8-2.4) mg/dl SONJA Results - Last 24 hrs: Microbiology 07/08/17 07:11 Stool Culture - Preliminary Stool / Feces - Final - Final Med Orders - Current: Current Medications Amlodipine Besylate (Norvasc) 10 mg PO DAILY [facility] Last Admin: 07/10/17 09:21 Dose: 10 mg Benazepril HCl (Lotensin) 20 mg PO DAILY [facility] Last Admin: 07/10/17 09:22 Dose: 20 mg Calcium Carbonate (Calcium Carbonate/Vitamin D 1500 Mg-200 Unit) 1 tab PO BEDTIME [facility] Last Admin: 07/09/17 22:02 Dose: 1 tab Doxazosin Mesylate (Cardura) 8 mg PO DAILY [facility] Last Admin: 07/10/17 09:21 Dose: 8 mg Ceftriaxone Sodium 1 gm/ (Dextrose/Water) 100 mls @ 200 mls/hr IV Q24H [facility] Last Admin: 07/09/17 14:00 Dose: 200 mls/hr Magnesium Sulfate (Pharmacy To Dose - Magnesium Replacement) 0 dose .XX ASDIRECTED PRN PRN Reason: RX TO WATCH MAG LEVELS Mycophenolate Mofetil (Cellcept) 500 mg PO BID [facility] Last Admin: 07/10/17 09:20 Dose: 500 mg Tacrolimus 1 Mg Cap. 0 each PO BID [facility] Last Admin: 07/10/17 09:23 Dose: 2 each Prednisone (Prednisone) 5 mg PO DAILY [facility] Last Admin: 07/10/17 09:21 Dose: 5 mg Trimethoprim/Sulfamethoxazole (Septra Ds) 0.5 tab PO MoWeFr [facility] Last Admin: 07/09/17 09:55 Dose: 0.5 tab Discontinued Medications Sodium Chloride (Normal Saline) 1,000 mls @ 999 mls/hr IV ONETIME ONE Stop: 07/08/17 01:26 Last Admin: 07/08/17 00:34 Dose: 999 mls/hr Sodium Chloride (Normal Saline) 1,000 mls @ 999 mls/hr IV ONETIME ONE Stop: 07/08/17 03:16 Last Admin: 07/08/17 02:21 Dose: 999 mls/hr Sodium Chloride (Normal Saline) 1,000 mls @ 150 mls/hr IV ASDIRECTED [facility] Last Admin: 07/09/17 16:16 Dose: 150 mls/hr Magnesium Sulfate 2 gm/ Premix 50 mls @ 25 mls/hr IV Q1H [facility] Stop: 07/09/17 12:59 Last Admin: 07/09/17 15:13 Dose: 25 mls/hr Influenza Virus Vaccine (Pharmacy To Dose - Influenza Vaccine) 1 each IM ONETIME ONE Stop: 07/08/17 03:37 Influenza Virus Vaccine (Flulaval Quad [id number]) 60 mcg IM .ONCE ONE Stop: 07/08/17 03:46 Loperamide HCl (Imodium) 4 mg PO ONETIME STA Stop: 07/08/17 00:27 Last Admin: 07/08/17 00:33 Dose: 4 mg Trimethoprim/Sulfamethoxazole (Septra Ds) 1 tab PO ONETIME ONE Stop: 07/08/17 02:25 Last Admin: 07/08/17 02:33 Dose: 1 tab Trimethoprim/Sulfamethoxazole (Septra Ds) 1 tab PO BID [facility] Last Admin: 07/08/17 09:51 Dose: 1 tab Trimethoprim/Sulfamethoxazole (Septra Ds) 0.5 tab PO MoWeFr [facility] - Exam General: Reports: Alert, Oriented, Cooperative, No Acute Distress HEENT: Reports: Pupils Equal, Pupils Reactive, EOMI, Mucous Membr. Moist/[place] Neck: Reports: Supple, Trachea Midline, No JVD Lungs: Reports: Clear to Auscultation, Normal Respiratory Effort Cardiovascular: Reports: Regular Rate, Regular Rhythm, Rubs GI/Abdominal Exam: Normal Bowel Sounds, Soft, Non-Tender, No Distention, No Abnormal Bruit, No Mass (Male) Exam: Deferred, Other (Urostomy on right lower abdomen) Rectal (Males) Exam: Deferred Back Exam: Reports: Normal Inspection, Decreased Range of Motion Extremities: Normal Inspection, Normal Range of Motion, Non-Tender, No Pedal Edema, Normal Capillary Refill Skin: Reports: Warm, Dry, Intact Neurological: Reports: No New Focal Deficit Psy/Mental Status: Reports: Alert, Normal Affect, Normal Mood *Q Meaningful Use (DIS) - VTE *Q VTE Criteria *Q: - Stroke *Q Stroke Criteria *Q: - AMI *Q AMI Criteria *Q:
[2017-07-10] MEDS ORDERED: Pneumococcal Polyvalent-23 Vaccine 0.5 ML SDV IM ONE (10:30)
== END 2017-07-10 11:00 | disposition home or self-care (01) | DRG 249 ==
LOC: JD.ED 23:57 → JD.MS 07-08 02:47
PROVIDERS: ADMIT Internal Medicine; ATTEND Internal Medicine
DX: K52.9 Noninfective gastroenteritis and colitis, unspecified (principal); N39.0 Urinary tract infection, site not specified; E87.2 Acidosis; E86.0 Dehydration; N17.9 Acute kidney failure, unspecified; I95.1 Orthostatic hypotension; Z94.0 Kidney transplant status; I10 Essential (primary) hypertension; H91.90 Unspecified hearing loss, unspecified ear; F17.210 Nicotine dependence, cigarettes, uncomplicated; Z79.899 Other long term (current) drug therapy; B96.5 Pseudomonas (aeruginosa) (mallei) (pseudomallei) as the cause of diseases classified elsewhere
CPT/HCPCS: 36415; 36600; 71046; 71046-26; 80048; 80053; 81001; 82803; 83605; 83690; 83735; 85025; 87046; 87086; 87088; 87186; 87425; 87493; 87798; 89055; 90471; 90686; 90732; 96360; 96361; 99285; 99285-25; A9270-GY; G0008; G0009; J0696; J3475; J7040; J7060